=== PATIENT | female | born 1995 | race Caucasian/White ===

== ENCOUNTER 2017-03-24 22:36 | Inpatient (IN) ==
[2017-03-24 23:21] LABS: Basophils % 0.4 %; Eosinophils # 0.1 K/mcL (0.0-0.6); Eosinophils % 1.1 %; Hematocrit 34.5 % (35.3-44.9); Hemoglobin 10.8 g/dL (11.5-15.4); Immature Granulocytes % 0.4 % (0-4); Immature Platelets 5.3 % (1.1-6.1); Lymphocytes # 2.6 K/mcL (0.6-4.6); Lymphocytes % 24.6 %; Mean Corpuscular HGB Conc 31.3 g/dL (31.6-35.5); Mean Corpuscular Hemoglobin 24.6 pg (28.0-33.3); Mean Corpuscular Volume 78.6 fL (83.0-100.0); Mean Platelet Volume 10.9 fL (9.4-12.4); Monocytes # 0.8 K/mcL (0.0-1.3); Monocytes % 7.3 %; Neutrophils # 7.1 K/mcL (1.6-8.9); Platelet Count 358 K/mcL (140-400); Red Blood Count 4.39 M/mcL (3.82-4.97); Red Cell Distribution Width 16.3 % (11.5-14.5); Segmented Neutrophils % 66.2 %
[2017-03-24] MEDS ORDERED: 0.9 % Sodium Chloride 1,000 ML IVC ONE (23:28)
--- NOTE | 2017-03-24 23:31 | Emergency Department Note ---
Overdose - [facility] Narrative Medical decision making narrative: Patient's workup here in the emergency department demonstrates toxic level at 4 hours after the patient took 37 tablets of 500 mg Tylenol. The patient will be given NAC treatment at this time. The patient will be admitted to the ICU for further care and observation. Patient and mother made aware and agree to plan. No further questions or concerns noted. We spoke to the Poison Control Center who agreed to our plan of N-acetylcysteine. The patient will be admitted to the hospitalist, accepted by Dr. Lawson. - Differential Diagnosis Likely: intentional overdose - Lab Data Lab results reviewed: Yes I reviewed the patient's lab results. Result diagrams: 03/24/17 23:15 03/24/17 23:15 Lab Results 03/24/17 03/24/17 03/24/17 Range/Units 23:15 23:15 23:24 WBC 10.7 (4.3-11.1) K/mcL RBC 4.39 (3.82-4.97) M/mcL Hgb 10.8 L (11.5-15.4) g/dL Hct 34.5 L (35.3-44.9) % MCV 78.6 L (83.0-100.0) fL MCH 24.6 L (28.0-33.3) pg MCHC 31.3 L (31.6-35.5) g/dL RDW 16.3 H (11.5-14.5) % Plt Count 358 (140-400) K/mcL MPV 10.9 (9.4-12.4) fL Immature Gran % 0.4 (0-4) % Seg Neutrophils % 66.2 % Lymphocytes % 24.6 % Monocytes % 7.3 % Eosinophils % 1.1 % Basophils % 0.4 % Neutrophils # 7.1 (1.6-8.9) K/mcL Lymphocytes # 2.6 (0.6-4.6) K/mcL Monocytes # 0.8 (0.0-1.3) K/mcL Eosinophils # 0.1 (0.0-0.6) K/mcL Basophils # 0.0 (0.0-0.2) K/mcL Immature Plt Fraction 5.3 (1.1-6.1) % Sodium 139 (136-145) mEq/L Potassium 3.9 (3.5-4.5) mEq/L Chloride 108 (98-109) mEq/L Carbon Dioxide 23 (19-29) mEq/L BUN 9 (7-20) mg/dL Creatinine 0.66 (0.57-1.11) mg/dL Est GFR ( Amer) > 60 (> 60) Est GFR (Non-Af Amer) > 60 (> 60) BUN/Creatinine Ratio 14 (6-26) Glucose 119 H (70-99) mg/dL Calculated Osmolality 288 (280-300) Calcium 9.5 (8.6-10.8) mg/dL Total Bilirubin 0.3 (0.2-1.2) mg/dL Direct Bilirubin 0.2 (0.0-0.5) mg/dL Indirect Bilirubin 0.1 (0.0-1.2) mg/dL AST 21 (5-34) Units/L ALT 33 (0-55) Units/L Alkaline Phosphatase 100 (38-126) Units/L Serum Total Protein 7.6 (6.0-8.3) g/dL Albumin 3.6 (3.5-5.0) g/dL Globulin 4.0 H (2.4-3.5) g/dL Albumin/Globulin Ratio 0.9 L (1.1-2.2) Urine Color Yellow (Yellow) Urine Clarity Clear (Clear) Urine pH 6.5 (5.0-8.0) pH Units Ur Specific [place] 1.008 L (1.010-1.025) Urine Protein Negative (Neg-Trace) mg/dL Urine Glucose (UA) Normal (Normal) mg/dL Urine Ketones Negative (Negative) mg/dL Urine Blood Negative (Negative) Urine Nitrite Negative (Negative) Urine Bilirubin Negative (Negative) Urine Urobilinogen Normal (Normal) mg/dL Ur Leukocyte Esterase Negative (Negative) Urine Test (Negative) Salicylates < 5.0 L (15-30) mg/dL Urine Opiates Screen (Svluzx=611) ng/mL Acetaminophen 205.0 H* (10-30) mcg/mL Ur Barbiturates Screen (Tgedlc=555) ng/mL Ur Phencyclidine Scrn (Cutoff=25) ng/mL Ur Amphetamines Screen (Afwlwl=8772) ng/mL U Benzodiazepines Scrn (Xrglvy=422) ng/mL Urine Cocaine Screen (Cutoff= 300) ng/mL U Marijuana (THC) Screen (Cutoff = 50) ng/mL Ethyl Alcohol < 10 (0-10) mg/dL 03/24/17 03/24/17 03/25/17 Range/Units 23:24 23:24 01:01 WBC (4.3-11.1) K/mcL RBC (3.82-4.97) M/mcL Hgb (11.5-15.4) g/dL Hct (35.3-44.9) % MCV (83.0-100.0) fL MCH (28.0-33.3) pg MCHC (31.6-35.5) g/dL RDW (11.5-14.5) % Plt Count (140-400) K/mcL MPV (9.4-12.4) fL Immature Gran % (0-4) % Seg Neutrophils % % Lymphocytes % % Monocytes % % Eosinophils % % Basophils % % Neutrophils # (1.6-8.9) K/mcL Lymphocytes # (0.6-4.6) K/mcL Monocytes # (0.0-1.3) K/mcL Eosinophils # (0.0-0.6) K/mcL Basophils # (0.0-0.2) K/mcL Immature Plt Fraction (1.1-6.1) % Sodium (136-145) mEq/L Potassium (3.5-4.5) mEq/L Chloride (98-109) mEq/L Carbon Dioxide (19-29) mEq/L BUN (7-20) mg/dL Creatinine (0.57-1.11) mg/dL Est GFR ( Amer) (> 60) Est GFR (Non-Af Amer) (> 60) BUN/Creatinine Ratio (6-26) Glucose (70-99) mg/dL Calculated Osmolality (280-300) Calcium (8.6-10.8) mg/dL Total Bilirubin (0.2-1.2) mg/dL Direct Bilirubin (0.0-0.5) mg/dL Indirect Bilirubin (0.0-1.2) mg/dL AST (5-34) Units/L ALT (0-55) Units/L Alkaline Phosphatase (38-126) Units/L Serum Total Protein (6.0-8.3) g/dL Albumin (3.5-5.0) g/dL Globulin (2.4-3.5) g/dL Albumin/Globulin Ratio (1.1-2.2) Urine Color (Yellow) Urine Clarity (Clear) Urine pH (5.0-8.0) pH Units Ur Specific [place] (1.010-1.025) Urine Protein (Neg-Trace) mg/dL Urine Glucose (UA) (Normal) mg/dL Urine Ketones (Negative) mg/dL Urine Blood (Negative) Urine Nitrite (Negative) Urine Bilirubin (Negative) Urine Urobilinogen (Normal) mg/dL Ur Leukocyte Esterase (Negative) Urine Test Negative (Negative) Salicylates (15-30) mg/dL Urine Opiates Screen Negative (Orqtrt=900) ng/mL Acetaminophen 193.0 H* (10-30) mcg/mL Ur Barbiturates Screen Negative (Fyotvm=411) ng/mL Ur Phencyclidine Scrn Negative (Cutoff=25) ng/mL Ur Amphetamines Screen Negative (Jrzfxn=0228) ng/mL U Benzodiazepines Scrn Negative (Txggpp=225) ng/mL Urine Cocaine Screen Negative (Cutoff= 300) ng/mL U Marijuana (THC) Screen Negative (Cutoff = 50) ng/mL Ethyl Alcohol (0-10) mg/dL - EKG Data EKG attestation: Yes I reviewed and interpreted this EKG. EKG results narrative: Heart rate 10 1 bpm. SC interval 144 ms. QTC 399 ms. Sinus tachycardia. No ST elevation or ST depression noted. No prolongation of QT or QRS at this time. Overdose HPI - General Chief Complaint: ED Overdose Stated Complaint: "SI" Time Seen by Provider: 03/24/17 23:05 Source: patient, family Mode of arrival: ambulatory Limitations: no limitations Nursing Notes Reviewed: Yes Vital Signs Reviewed: Yes - History of Present Illness HPI Narrative: 21-year-old female with history of depression arrives [facility] emergency department after taking 37 tablets of 500 mg Tylenol at 9 PM this evening, roughly 2.5 hours prior to arrival. This equates to be roughly 17.5 g of Tylenol. This number of tablets was confirmed by counting pills in the room. The patient denies taking anything else. The patient states that she did try to kill herself. She denies any other complaints and states she took it all at one time at exactly 9 PM this evening. Pt Subjective Complaint: intentional overdose Onset (ago): hour(s) (2.5) Time of Ingestion: 21:00 Intent: suicide attempt How Overdose Was Discovered: called family/friend Associated symptoms: depression Treatments Prior to Arrival: none - Related Data Previous Rx's Medication Instructions Recorded Albuterol Sulfate [Ventolin Hfa] 2 puff IH Q4-6H PRN #1 hfa.aer.ad 03/13/17 Azithromycin [Zithromax] 250 - 500 mg PO DAILY #6 tablet 03/13/17 Ipratropium/Albuterol Neb [Duoneb] 3 ml IH Q6H PRN #30 vial.neb 03/13/17 Nebulizer [Aeroeclipse] 1 each MC PRN PRN #1 each 03/13/17 Promethazine/Dextromethorphan 5 ml PO Q4-6H PRN #120 ml 03/13/17 [Promethazine-Dm Syrup] Allergies Allergy/AdvReac Type Severity Reaction Status Date / Time No Known Allergies Allergy Verified 05/03/15 19:43 All systems ED: reviewed and negative except as stated. Constitutional: Denies: fever, chills, weakness ENT ED: Denies: congestion Cardiovascular: Denies: chest pain Respiratory: Denies: dyspnea Gastrointestinal: Denies: abdominal pain, nausea, vomiting Genitourinary: Denies: urgency, dysuria Musculoskeletal: Denies: back pain Neurological: Denies: headache Psychiatric: Reports: depression, suicidal thoughts. Denies: anxiety, homicidal thoughts, auditory hallucinations, visual hallucinations Past Medical History - Past Medical History Attestation: Yes The following information was validated with the patient. Source: patient Medical history: Reports: other Surgical history: Reports: non-contributory Psychiatric history: Reports: anxiety, previous psychiatric hospitalization - Social History Smoking Status: Never smoker Smokeless Tobacco Status: No Alcohol use: Reports: none Drug use: Reports: none Physical Exam - General Limitations: no limitations General appearance: alert, in no apparent distress, anxious - Head Head exam: atraumatic, normocephalic, normal inspection - Eye Eye exam: Present: normal appearance, PERRL, EOMI - ENT ENT exam: normal exam, normal oropharynx, mucous membranes moist - Neck Neck exam: Present: normal inspection, full ROM, trachea midline - Chest Chest inspection: Present: normal inspection, symmetric chest wall rise - Respiratory Respiratory exam: Present: normal lung sounds bilaterally - Cardiovascular Cardiovascular exam: Present: normal rhythm, tachycardia, normal heart sounds - Abdominal Exam Abdominal exam: Present: soft, Non-Tender. Absent: tenderness, distention, guarding, rebound, rigidity - Extremities Exam Extremities exam: Present: normal inspection, full ROM. Absent: tenderness, pedal edema - Neurological Exam Neurological exam: Present: alert, oriented X3, CN II-XII intact, normal gait - Expanded Neurological Exam Patient oriented to: Present: person, place, time Coma Scale Eye Opening: Spontaneous Coma Scale Motor Response: Obeys Commands Coma Scale Verbal Response: Oriented Coma Scale Total: 15 Course Vital Signs Temperature 98.3 F 03/24/17 22:39 Pulse Rate 125 03/24/17 22:39 Respiratory Rate 16 03/24/17 22:39 Blood Pressure 134/83 03/24/17 22:39 O2 Sat by Pulse Oximetry 98 03/24/17 22:39 Temperature 98.3 F 03/24/17 22:39 Pulse Rate 91 03/25/17 02:00 Respiratory Rate 20 03/25/17 02:00 Blood Pressure 121/83 03/25/17 02:00 O2 Sat by Pulse Oximetry 97 03/25/17 02:00 Oxygen Delivery Oxygen Delivery Room Air Disposition Clinical Impression: Acetaminophen overdose Qualifiers: Encounter type: initial encounter Injury intent: intentional self-harm Qualified Code(s): T39.1X2A - Poisoning by 4-Aminophenol derivatives, intentional self-harm, initial encounter Suicide attempt by acetaminophen overdose Qualifiers: Encounter type: initial encounter Qualified Code(s): T39.1X2A - Poisoning by 4- Aminophenol derivatives, intentional self-harm, initial encounter Disposition: Admitted As Inpatient Condition: Critical Time of Disposition: 02:14 Attestation Statement - Attestation Attestation: I, Bobby Rosas MD, personally evaluated this patient and discussed their management with the resident physician. I reviewed the resident's note and agree with the documented findings, medical decision making, and plan of care. 21-year-old female presents to the emergency department with complaint of intentional overdose of Tylenol at 9 PM this evening. Patient states she was trying to kill herself. Patient took approximately 17 g. She states she did have one episode of vomiting prior to arrival here but it was outside in the dark and she could not see if there were any pill fragments. She has no specific complaints at present. No abdominal pain or nausea. On examination patient is a well-developed obese young female in no acute distress. She is alert and oriented 3. There is no cyanosis or diaphoresis. Chest is nontender to palpation. Breath sounds are clear and equal bilaterally. Heart regular rate and rhythm. Abdomen soft and nontender with normal bowel sounds. No gross focal neurological deficits. Labs reviewed. Four-hour acetaminophen level 193. Acetadote initiated. The hospitalist, Dr. Davila, was consulted and accepted admission of the patient.
[2017-03-24 23:32] LABS: BUN/Creatinine Ratio 14 (6-26); Blood Urea Nitrogen 9 mg/dL (7-20); Calcium 9.5 mg/dL (8.6-10.8); Carbon Dioxide 23 mEq/L (19-29); Chloride 108 mEq/L (98-109); Glucose 119 mg/dL (70-99); Osmolality,Calculated 288 (280-300); Potassium 3.9 mEq/L (3.5-4.5); Sodium 139 mEq/L (136-145); eGFR For African Americans > 60 (> 60); eGFR For Non-African Americans > 60 (> 60)
[2017-03-24 23:37] LABS: Bilirubin,Urine Negative (Negative); Blood,Urine Negative (Negative); Clarity,Urine Clear (Clear); Color,Urine Yellow (Yellow); Glucose,Urine (UA) Normal (Normal); Ketones,Urine Negative (Negative); Leukocyte Esterase,Urine Negative (Negative); Nitrite,Urine Negative (Negative); PH,Urine 6.5 pH Units (5.0-8.0); Protein,Urine Negative (Neg-Trace); Specific Gravity,Urine 1.008 (1.010-1.025); Urobilinogen,Urine Normal (Normal)
[2017-03-24 23:39] LABS: Amphetamine Screen,Urine Negative ng/mL (Cutoff=1000); Barbiturate Screen,Urine Negative ng/mL (Cutoff=200); Benzodiazepines Screen,Urine Negative ng/mL (Cutoff=200); Cannabinoid Screen,Urine Negative ng/mL (Cutoff = 50); Cocaine Screen,Urine Negative ng/mL (Cutoff= 300); Opiate Screen,Urine Negative ng/mL (Cutoff=300); Phencyclidine Screen,Urine Negative ng/mL (Cutoff=25)
[2017-03-24 23:44] LABS: Alanine Aminotransferase 33 Units/L (0-55); Albumin 3.6 g/dL (3.5-5.0); Albumin/Globulin Ratio 0.9 (1.1-2.2); Alkaline Phosphatase 100 Units/L (38-126); Aspartate Amino Transferase 21 Units/L (5-34); Bilirubin,Direct 0.2 mg/dL (0.0-0.5); Bilirubin,Indirect 0.1 mg/dL (0.0-1.2); Bilirubin,Total 0.3 mg/dL (0.2-1.2); Total Protein 7.6 g/dL (6.0-8.3)
[2017-03-25 00:28] LABS: Ethanol < 10 mg/dL (0-10); Salicylate < 5.0 mg/dL (15-30)
[2017-03-25] MEDS ORDERED: ACETYLCYSTEINE 6000 MG/30 ML IVC STA (01:23)
[2017-03-25] MEDS ORDERED: ACETYLCYSTEINE 6000 MG/30 ML IVC ONE ×2 (01:27→01:28)
[2017-03-25] MEDS ORDERED: Acetylcysteine 15,000 MG in D5% in Water 250 ML IVC STA (01:37)
[2017-03-25] MEDS ORDERED: Acetylcysteine 5,000 MG in D5% in Water 500 ML IVC SCH (03:00)
[2017-03-25] MEDS ORDERED: Ipratropium/Albuterol Neb 3 ML IH PRN (03:18)
[2017-03-25] MEDS ORDERED: Naloxone 0.4 MG/ML INJ IVP PRN (03:18)
[2017-03-25] MEDS ORDERED: Ondansetron 4 MG/2 ML VIAL IVP PRN ×2 (03:18→03:24)
[2017-03-25] MEDS: 0.9 % Sodium Chloride 1,000 ML IVC SCH ×2 (03:41→17:43)
--- NOTE | 2017-03-25 03:45 | Internal Med History&Physical ---
Date of Encounter: 03/25/17 Time of Encounter: 03:20 Assessment and Plan (1) Acetaminophen overdose Current visit: Yes Status: Acute Acute Acetaminophen overdose - secondary to intentional ingestion Acetaminophen level - 205 > 193, serial Acetaminophen levels Continue IV Acetylcysteine, IV fluids, replace Magnesium IV Famotidine, IV Zofran PRN EKG - sinus tachycardia with no acute ST-T changes UA - negative Psychiatry consult - pending Telemetry, pulse ox, labs in a.m., monitor closely Qualifiers: Encounter type: initial encounter Injury intent: intentional self-harm Qualified Code(s): T39.1X2A - Poisoning by 4-Aminophenol derivatives, intentional self-harm, initial encounter (2) Suicide attempt Current visit: Yes Status: Acute Suicide attempt with intentional overdose of Acetaminophen - no previous attempts Patient has not been diagnosed with depression in the past, history of suicidal thoughts in the past Psychiatry consult - pending (3) Asthma Current visit: Yes Status: Acute Asthma, stable - not in exacerbation Attending DuoNeb breathing treatment as needed Qualifiers: Asthma severity: mild Asthma persistence: intermittent Asthma complication type: uncomplicated Qualified Code(s): J45.20 - Mild intermittent asthma, uncomplicated (4) DVT prophylaxis Current visit: Yes Status: Acute Heparin subcutaneous Internal Medicine - H&P: HPI Chief complaint: Intentional overdose Admitted From: Emergency Dept Plans for Post Hospital Care: Home History of present illness: Ms. Barba is a 21 year old female with past medical history of asthma. She presents to the ED after an intentional overdose of Tylenol with suicidal intent. Examined in the ICU. Patient is awake and alert. Not in any distress. Able to provide all history. No family members at bedside. Patient states around 9 PM this evening she ingested about 30-35 tablets of 500 mg Tylenol. Patient denies taking anything else. She states that she did try to kill herself. Patient mentions that she has had suicidal thoughts in the past, but this is the first time that she has acted on this. Patient mentions that she goes to counseling every week, but has never been diagnosed with depression. Patient denies chest pain, palpitations, shortness of breath or headache. She does complain of mild dizziness. She denies auditory or visual hallucinations and denies homicidal thoughts. No other associated symptoms. No other acute complaints. Patient states she has never seen a psychiatrist in the past. Initial workup in the ED is significant for elevated Acetaminophen levels at 205. Patient has been started on Acetylcysteine as per protocol. Patient is currently hemodynamically stable. Psychiatry consult pending. Patient has been explained about her condition and plan of care in detail. She understood and agreed. No unanswered questions. CODE STATUS full code. Past Med Surg Social Fam HX - Past Medical History Medical history: other Psychiatric history: anxiety, previous psychiatric hospitalization - Past Surgical History Surgical History: non-contributory - Social History Smoking Status: Never smoker Smokeless Tobacco Status: No Alcohol use: none Drug use: none Internal Medicine - H&P: Meds Albuterol Sulfate [Ventolin Hfa] 2 puff IH Q4-6H PRN #1 hfa.aer.ad 03/13/17 [Rx] Azithromycin [Zithromax] 250 - 500 mg PO DAILY #6 tablet 03/13/17 [Rx] Ipratropium/Albuterol Neb [Duoneb] 3 ml IH Q6H PRN #30 vial.neb 03/13/17 [Rx] Nebulizer [Aeroeclipse] 1 each MC PRN PRN #1 each 03/13/17 [Rx] Promethazine/Dextromethorphan [Promethazine-Dm Syrup] 5 ml PO Q4-6H PRN #120 ml 03/13/17 [Rx] 3 Allergy/AdvReac Type Severity Reaction Status Date / Time No Known Allergies Allergy Verified 05/03/15 19:43 All Systems PM: A 10-system review of systems was performed and is negative for pertinent findings except as documented above in the HPI. - Constitutional Constitutional: fatigue, no fever(s), no weakness - EENT Eyes: no blurry vision Nose, mouth and throat: no dry mouth - Cardiovascular Cardiovascular ROS IM: no chest pain, no diaphoresis, no dyspnea, no dyspnea on exertion, no edema, no lightheadedness, no orthopnea, no palpitations, no syncope - Respiratory Respiratory: no cough, no dyspnea, no hemoptysis, no dyspnea on exertion, no wheezing, no chest congestion - Gastrointestinal Gastrointestinal: no abdominal pain, no bloating, no cramping, no diarrhea, no hematemesis, no hematochezia, no loose stools, no melena, no nausea, no vomiting - Genitourinary Genitourinary: no dysuria - Musculoskeletal Musculoskeletal ROS IM: no back pain - Neurological Neurological ROS: dizziness, no abnormal gait, no abnormal movements, no abnormal speech, no confusion, no focal weakness, no loss of vision, no numbness , no tingling - Psychiatric Psychiatric: anxiety, depression, suicidal ideation, no homicidal ideation, no irritability - Constitutional Vitals: Temp Pulse Resp BP Pulse Ox 98.3 F 93 18 118/95 97 03/25/17 03:08 03/25/17 03:08 03/25/17 03:08 03/25/17 03:08 03/25/17 03:08 General appearance: Present: cooperative, A&O X 3, morbidly obese, pleasant, no acute distress, answers questions appropriately - Head Head exam: Present: atraumatic - Eye Eye exam: Present: EOMI - ENT ENT exam: Present: mucous membranes moist - Neck Neck exam general surgery: Present: full ROM - Respiratory Respiratory exam: Present: CTAB. Absent: accessory muscle use, chest wall tenderness, rales, respiratory distress, rhonchi, wheezes, tachypnea - Cardiovascular Cardiovascular exam: Present: RRR, +S1, +S2 - GI/Abdominal GI/Abdominal exam: Present: soft. Absent: distended, firm, guarding, tenderness - Extremities Exam Extremities exam: Present: pedal edema (Mild bilateral), radial pulses palpable and symmetrical. Absent: calf tenderness, cyanotic - Neurological Exam Neurological exam: Present: alert, oriented X3, no focal deficits. Absent: facial droop, speech deficit Internal Med - H&P Results - Labs CBC & Chem 7: 03/25/17 03:58 03/25/17 03:58
[2017-03-25 04:45] LABS: Basophils % 0.4 %; Eosinophils % 0.4 %; Hematocrit 30.8 % (35.3-44.9); Hemoglobin 9.5 g/dL (11.5-15.4); Immature Granulocytes % 0.2 % (0-4); Lymphocytes # 2.6 K/mcL (0.6-4.6); Lymphocytes % 31.6 %; Mean Corpuscular HGB Conc 30.8 g/dL (31.6-35.5); Mean Corpuscular Hemoglobin 24.2 pg (28.0-33.3); Mean Corpuscular Volume 78.6 fL (83.0-100.0); Mean Platelet Volume 11.6 fL (9.4-12.4); Monocytes # 0.5 K/mcL (0.0-1.3); Neutrophils # 5.1 K/mcL (1.6-8.9); Platelet Count 323 K/mcL (140-400); Red Blood Count 3.92 M/mcL (3.82-4.97); Red Cell Distribution Width 16.4 % (11.5-14.5); Segmented Neutrophils % 61.4 %
[2017-03-25 04:58] LABS: Alanine Aminotransferase 30 Units/L (0-55); Albumin 2.9 g/dL (3.5-5.0); Albumin/Globulin Ratio 0.8 (1.1-2.2); Alkaline Phosphatase 76 Units/L (38-126); Aspartate Amino Transferase 15 Units/L (5-34); BUN/Creatinine Ratio 11 (6-26); Bilirubin,Total 0.3 mg/dL (0.2-1.2); Blood Urea Nitrogen 7 mg/dL (7-20); Calcium 8.3 mg/dL (8.6-10.8); Carbon Dioxide 22 mEq/L (19-29); Chloride 110 mEq/L (98-109); Globulin 3.7 g/dL (2.4-3.5); Glucose 143 mg/dL (70-99); Osmolality,Calculated 292 (280-300); Potassium 3.5 mEq/L (3.5-4.5); Sodium 141 mEq/L (136-145); Total Protein 6.6 g/dL (6.0-8.3); eGFR For African Americans > 60 (> 60); eGFR For Non-African Americans > 60 (> 60)
[2017-03-25] MEDS: Famotidine 20 MG/2 ML VIAL IVP SCH ×2 (05:11→17:34)
[2017-03-25] MEDS ORDERED: Acetylcysteine 10,000 MG in D5% in Water 1,000 ML IVC SCH (07:00)
[2017-03-25] MEDS: *HR* Heparin 5,000 UNIT/ML VIAL SQ SCH ×2 (07:48→17:33)
[2017-03-25 13:57] LABS: Alanine Aminotransferase 29 Units/L (0-55); Albumin 2.9 g/dL (3.5-5.0); Albumin/Globulin Ratio 0.7 (1.1-2.2); Alkaline Phosphatase 77 Units/L (38-126); Aspartate Amino Transferase 23 Units/L (5-34); BUN/Creatinine Ratio 7 (6-26); Bilirubin,Total 0.6 mg/dL (0.2-1.2); Calcium 8.5 mg/dL (8.6-10.8); Carbon Dioxide 22 mEq/L (19-29); Chloride 110 mEq/L (98-109); Globulin 4.1 g/dL (2.4-3.5); Glucose 101 mg/dL (70-99); Osmolality,Calculated 285 (280-300); Potassium 3.9 mEq/L (3.5-4.5); Sodium 139 mEq/L (136-145); eGFR For African Americans > 60 (> 60); eGFR For Non-African Americans > 60 (> 60)
[2017-03-25 13:59] LABS: Blood Urea Nitrogen 4 mg/dL (7-20)
--- NOTE | 2017-03-25 15:12 | Consult Note ---
Date of Encounter: 03/25/17 Time of Encounter: 15:02 History of Present Illness Patient: new to practice Requesting Physician: Imelda Mosher MD History of present illness: Ms. Barba is a 21 year old female from [place]. Chief complaint I took too much medication was bad decision. I got sick I called my mom. Patient took approximately 30 Tylenol. History of present illness: Patient had a bad son in fact her week had been bad. She attempted to go to an inpatient psychiatric unit on Saturday afternoon. She was there for about 3 days and she requests to go to a residential facility. However she was told that her insurance would not cover it and she could not get that. The patient returned back on Saturday. She had been isolated she had been poorly socialized. The patient took over 30 Tylenol on Saturday night without a previous plan. There are no other suicide attempts. The patient has been in counseling for over 5 months. She has been trying to cover up some things and consequently lied about a few things. She said that she made some bad decisions. Patient is on no psychiatric medicines. She was not given a psychiatric diagnosis. She is the counselor and [place] but no psychiatrist no primary care doctor. The patient quit her job to go to the facility. She is now looking for a new job. Past psychiatric history is significant for some self-harm but no other significant problems. Past medical history: Surgery on the right foot with repair of the fifth metatarsal. Illness: Asthma with an when necessary inhaler. NKDA, meds none, . she is on no control Family history is not well known of father's family there is no history of suicide the patient has a maternal grandfather alcohol problem aunts and uncles had alcohol problems. There is no history of drug abuse. Social history: The patient was raised in [place] she completed high school she went to some college. 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 Patient lives alone. She has no relationship problems or other problems. She identifies herself as a denominational member. Review of systems. Patient has occasional dyspnea. She has no problems with bowel or bladder. She has no primary care physician. On mental status exam she was alert and oriented 3 she is casually groomed and dressed she was lying in bed. Speech was within normal limits sad her mood was dysphoric thought content was logical and goal-directed there is no evidence suicidality or psychosis insight and judgment intact Diagnosis: Adjustment disorder with depressed mood Acetaminophen overdose Asthma. Recommendations and plan. At this point the patient would benefit from going back to her counselor will try to get a release of information. She does not wish to take psychiatric medicines at this time. She could be evaluated for medications on an outpatient basis. The patient could be considered for partial hospitalization in the local facility. She may return to work without restriction. However it is important for her to have the number for suicide hotline or the number to the [facility] c crisis line. Also the [place] emergency room can be contacted should patient have thoughts of harming herself again. Her mother is checked over her house and has removed Tylenol there is no alcohol guns or other apparent implements of suicide. I did discuss the treatment plan with the patient's father. The patient's mother was not available at this time. The patient may be taken off SL. She can be scheduled for follow-up should she need psychiatric treatment she can be seen by [facility] services or could seek admission through the ER. I do not feel she requires inpatient hospitalization or involuntary hospitalization this time CC: Imelda Mosher MD Past Med Surg Social Fam HX - Past Medical History Medical history: other - Past Surgical History Surgical History: non-contributory - Social History Smoking Status: Never smoker Smokeless Tobacco Status: No Alcohol use: none Drug use: none Medications & Allergies Albuterol Sulfate [Ventolin Hfa] 2 puff IH Q4-6H PRN #1 hfa.aer.ad 03/13/17 [Rx] Ipratropium/Albuterol Neb [Duoneb] 3 ml IH Q6H PRN #30 vial.neb 03/13/17 [Rx] 3 Allergy/AdvReac Type Severity Reaction Status Date / Time No Known Allergies Allergy Verified 05/03/15 19:43 Review of Systems Respiratory: Reports: dyspnea Results - Vital Signs Vital signs: Temp Pulse Resp BP Pulse Ox 97.9 F 93 13 121/90 97 03/25/17 12:00 03/25/17 14:00 03/25/17 14:00 03/25/17 14:00 03/25/17 10:59 - Drug Levels and Toxicology Drug Levels and Toxicology: Drug Levels and Toxicity 03/25/17 03/25/17 07:37 13:31 Acetaminophen 39.0 H 5.0 L - Labs Labs: Laboratory Last Values WBC 8.4 K/mcL (4.3-11.1) 03/25/17 03:58 RBC 3.92 M/mcL (3.82-4.97) 03/25/17 03:58 Hgb 9.5 g/dL (11.5-15.4) L 03/25/17 03:58 Hct 30.8 % (35.3-44.9) L 03/25/17 03:58 MCV 78.6 fL (83.0-100.0) L 03/25/17 03:58 MCH 24.2 pg (28.0-33.3) L 03/25/17 03:58 MCHC 30.8 g/dL (31.6-35.5) L 03/25/17 03:58 RDW 16.4 % (11.5-14.5) H 03/25/17 03:58 Plt Count 323 K/mcL (140-400) 03/25/17 03:58 MPV 11.6 fL (9.4-12.4) 03/25/17 03:58 Immature Gran % 0.2 % (0-4) 03/25/17 03:58 Seg Neutrophils % 61.4 % 03/25/17 03:58 Lymphocytes % 31.6 % 03/25/17 03:58 Monocytes % 6.0 % 03/25/17 03:58 Eosinophils % 0.4 % 03/25/17 03:58 Basophils % 0.4 % 03/25/17 03:58 Neutrophils # 5.1 K/mcL (1.6-8.9) 03/25/17 03:58 Lymphocytes # 2.6 K/mcL (0.6-4.6) 03/25/17 03:58 Monocytes # 0.5 K/mcL (0.0-1.3) 03/25/17 03:58 Eosinophils # 0.0 K/mcL (0.0-0.6) 03/25/17 03:58 Basophils # 0.0 K/mcL (0.0-0.2) 03/25/17 03:58 Immature Plt Fraction 5.3 % (1.1-6.1) 03/24/17 23:15 Sodium 139 mEq/L (136-145) 03/25/17 13:31 Potassium 3.9 mEq/L (3.5-4.5) 03/25/17 13:31 Chloride 110 mEq/L (98-109) H 03/25/17 13:31 Carbon Dioxide 22 mEq/L (19-29) 03/25/17 13:31 BUN 4 mg/dL (7-20) L 03/25/17 13:31 Creatinine 0.61 mg/dL (0.57-1.11) 03/25/17 13:31 Est GFR ( Amer) > 60 (> 60) 03/25/17 13:31 Est GFR (Non-Af Amer) > 60 (> 60) 03/25/17 13:31 BUN/Creatinine Ratio 7 (6-26) 03/25/17 13:31 Glucose 101 mg/dL (70-99) H 03/25/17 13:31 Calculated Osmolality 285 (280-300) 03/25/17 13:31 Calcium 8.5 mg/dL (8.6-10.8) L 03/25/17 13:31 Magnesium 1.5 mg/dL (1.6-2.6) L 03/25/17 03:58 Total Bilirubin 0.6 mg/dL (0.2-1.2) 03/25/17 13:31 Direct Bilirubin 0.2 mg/dL (0.0-0.5) 03/24/17 23:15 Indirect Bilirubin 0.1 mg/dL (0.0-1.2) 03/24/17 23:15 AST 23 Units/L (5-34) 03/25/17 13:31 ALT 29 Units/L (0-55) 03/25/17 13:31 Alkaline Phosphatase 77 Units/L (38-126) 03/25/17 13:31 Serum Total Protein 7.0 g/dL (6.0-8.3) 03/25/17 13:31 Albumin 2.9 g/dL (3.5-5.0) L 03/25/17 13:31 Globulin 4.1 g/dL (2.4-3.5) H 03/25/17 13:31 Albumin/Globulin Ratio 0.7 (1.1-2.2) L 03/25/17 13:31 Urine Color Yellow (Yellow) 03/24/17 23:24 Urine Clarity Clear (Clear) 03/24/17 23:24 Urine pH 6.5 pH Units (5.0-8.0) 03/24/17 23:24 Ur Specific [place] 1.008 (1.010-1.025) L 03/24/17 23:24 Urine Protein Negative mg/dL (Neg-Trace) 03/24/17 23:24 Urine Glucose (UA) Normal mg/dL (Normal) 03/24/17 23:24 Urine Ketones Negative mg/dL (Negative) 03/24/17 23:24 Urine Blood Negative (Negative) 03/24/17 23:24 Urine Nitrite Negative (Negative) 03/24/17 23:24 Urine Bilirubin Negative (Negative) 03/24/17 23:24 Urine Urobilinogen Normal mg/dL (Normal) 03/24/17 23:24 Ur Leukocyte Esterase Negative (Negative) 03/24/17 23:24 Urine Test Negative (Negative) 03/24/17 23:24 Salicylates < 5.0 mg/dL (15-30) L 03/24/17 23:15 Urine Opiates Screen Negative ng/mL (Beklqb=707) 03/24/17 23:24 Acetaminophen 5.0 mcg/mL (10-30) L 03/25/17 13:31 Ur Barbiturates Screen Negative ng/mL (Gyfkjz=612) 03/24/17 23:24 Ur Phencyclidine Scrn Negative ng/mL (Cutoff=25) 03/24/17 23:24 Ur Amphetamines Screen Negative ng/mL (Ijpewe=5776) 03/24/17 23:24 U Benzodiazepines Scrn Negative ng/mL (Ucqynp=803) 03/24/17 23:24 Urine Cocaine Screen Negative ng/mL (Cutoff= 300) 03/24/17 23:24 U Marijuana (THC) Screen Negative ng/mL (Cutoff = 50) 03/24/17 23:24 Ethyl Alcohol < 10 mg/dL (0-10) 03/24/17 23:15 Consult Discharge Plan - Plan Referrals: NONE,PCP [Primary Care Provider] -
--- NOTE | 2017-03-25 15:50 | Electrocardiograph Report ---
[address] [place], [place] [address] Test Date: 2017-03-24 Pat Name: Fadumo Barba Department: 104 Room: [facility] Gender: F Equipment Validation Specialist: KRIS : 1995 Requested By: Christopher Boggs Order Number: [id number] Reading MD: Omid Dennis Measurements Intervals [place] Rate: 101 P: 28 [place]: 144 QRS: -3 QRSD: 82 T: 3 QT: 341 QTc: 399 Interpretive Statements SINUS TACHYCARDIA NONSPECIFIC T-WAVE ABNORMALITY ABNORMAL RHYTHM ECG BASELINE ARTIFACT Electronically Signed On 03-25-2017 15:48:41 EST by Omid Dennis
--- NOTE | 2017-03-25 17:53 | Internal Med Progress Note ---
Date of Encounter: 03/25/17 Time of Encounter: 09:00 - Assessment and plan (1) Acetaminophen overdose Current Visit: Yes Status: Acute Assessment and plan: Patient was started iv acetylcycteine protocol. Liver function stable. Acetaminophen level gets down. - Cont acetylcycteine protocol. F/U liver/renal function in am Qualifiers: Encounter type: initial encounter Injury intent: intentional self-harm Qualified Code(s): T39.1X2A - Poisoning by 4-Aminophenol derivatives, intentional self-harm, initial encounter (2) Suicide attempt by acetaminophen overdose Current Visit: Yes Status: Acute Assessment and plan: Psychiatry consult appreciated. Recommendation will be followed Qualifiers: Encounter type: initial encounter Qualified Code(s): T39.1X2A - Poisoning by 4-Aminophenol derivatives, intentional self-harm, initial encounter (3) DVT prophylaxis Current Visit: Yes Status: Acute Assessment and plan: Heparin subcutaneously. (4) Asthma Current Visit: Yes Status: Acute Assessment and plan: No wheezing. DuoNeb when necessary Qualifiers: Asthma severity: mild Asthma persistence: intermittent Asthma complication type: uncomplicated Qualified Code(s): J45.20 - Mild intermittent asthma, uncomplicated - Time Spent With Patient 25 - 35 minutes - Subjective Interval history: Patient was seen and examined. Laying on bed comfortably, no abdominal pain, nausea or vomiting. Denies suicidal or homicidal idea. Vitals are stable. Psychiatry consult appreciated. We will continue acetylcysteine to finish up the 21 hour protocol. Normal liver function, acetaminophen level gets down to 5 already. - Constitutional Vitals: Temp Pulse Resp BP Pulse Ox 98.2 F 106 21 125/82 97 03/25/17 15:00 03/25/17 17:00 03/25/17 17:00 03/25/17 17:00 03/25/17 10:59 General appearance: Present: cooperative, A&O X 3, morbidly obese, pleasant, no acute distress, answers questions appropriately - Head Head exam: Present: atraumatic, normocephalic - Eye Eye exam: Present: PERRL, conjuntiva pink, sclera anicteric Pupils: Present: PERRL - Neck Neck exam general surgery: Present: supple, trachea midline. Absent: lymphadenopathy - Respiratory Respiratory exam: Present: CTAB. Absent: accessory muscle use, rales, rhonchi, wheezes - Cardiovascular Cardiovascular exam: Present: RRR, +S1, +S2. Absent: diastolic murmur, gallop, rubs, systolic murmur - GI/Abdominal GI/Abdominal exam: Present: normal bowel sounds, soft, no peritoneal signs. Absent: distended, tenderness - Extremities Exam Extremities exam: Present: warm, radial pulses palpable and symmetrical. Absent : calf tenderness, cyanotic, pedal edema - Neurological Exam Neurological exam: Present: CN II-XII intact, oriented X3, no focal deficits. Absent: pronater drift, facial droop, speech deficit - Skin Skin exam: Present: dry, intact Internal Medicine: Result - Labs CBC & Chem 7: 03/25/17 03:58 03/25/17 13:31 Labs: Short CBC 03/25/17 Range/Units 03:58 WBC 8.4 (4.3-11.1) K/mcL Hgb 9.5 L (11.5-15.4) g/dL Hct 30.8 L (35.3-44.9) % Plt Count 323 (140-400) K/mcL Neutrophils # 5.1 (1.6-8.9) K/mcL BMP 03/25/17 03/25/17 03:58 13:31 Sodium 141 139 Potassium 3.5 3.9 Chloride 110 H 110 H Carbon Dioxide 22 22 BUN 7 4 L Creatinine 0.61 0.61 Glucose 143 H 101 H Calcium 8.3 L 8.5 L Liver Function 03/25/17 03/25/17 Range/Units 03:58 13:31 Total Bilirubin 0.3 0.6 (0.2-1.2) mg/dL AST 15 23 (5-34) Units/L ALT 30 29 (0-55) Units/L Alkaline Phosphatase 76 77 (38-126) Units/L Albumin 2.9 L 2.9 L (3.5-5.0) g/dL - VTE Documentation of Mechanical Device: Intermittent pneumatic compression device Consult Discharge Plan - Plan Referrals: NONE,PCP [Primary Care Provider] -
[2017-03-25 23:25] LABS: Acetaminophen < 1.0 mcg/mL (10-30); Aspartate Amino Transferase 15 Units/L (5-34)
[2017-03-26] MEDS: *HR* Heparin 5,000 UNIT/ML VIAL SQ SCH ×2 (03:15→08:58)
[2017-03-26 05:15] LABS: INR 1.3; Prothrombin Time 13.8 Seconds (9.4-12.1)
[2017-03-26 05:30] LABS: Alanine Aminotransferase 23 Units/L (0-55); Albumin/Globulin Ratio 0.8 (1.1-2.2); Alkaline Phosphatase 80 Units/L (38-126); Aspartate Amino Transferase 13 Units/L (5-34); BUN/Creatinine Ratio 12 (6-26); Bilirubin,Total 0.3 mg/dL (0.2-1.2); Blood Urea Nitrogen 8 mg/dL (7-20); Carbon Dioxide 24 mEq/L (19-29); Chloride 110 mEq/L (98-109); Globulin 3.7 g/dL (2.4-3.5); Glucose 89 mg/dL (70-99); Osmolality,Calculated 290 (280-300); Sodium 141 mEq/L (136-145); Total Protein 6.7 g/dL (6.0-8.3); eGFR For African Americans > 60 (> 60); eGFR For Non-African Americans > 60 (> 60)
[2017-03-26 05:33] LABS: Acetaminophen < 1.0 mcg/mL (10-30)
[2017-03-26] MEDS: Famotidine 20 MG/2 ML VIAL IVP SCH (05:34)
[2017-03-26 05:36] LABS: BUN/Creatinine Ratio 10 (6-26); Blood Urea Nitrogen 7 mg/dL (7-20); Calcium 9.5 mg/dL (8.6-10.8); Carbon Dioxide 24 mEq/L (19-29); Chloride 111 mEq/L (98-109); Glucose 85 mg/dL (70-99); Magnesium 1.9 mg/dL (1.6-2.6); Osmolality,Calculated 289 (280-300); Sodium 141 mEq/L (136-145); eGFR For African Americans > 60 (> 60); eGFR For Non-African Americans > 60 (> 60)
[2017-03-26 13:02] VITALS: BP 135/75
--- NOTE | 2017-03-26 15:05 | Discharge Summary ---
Date of Encounter: 03/26/17 Time of Encounter: 13:30 - Discharge Diagnosis (1) Acetaminophen overdose Priority: Primary Status: Acute Qualifiers: Encounter type: initial encounter Injury intent: intentional self-harm Qualified Code(s): T39.1X2A - Poisoning by 4-Aminophenol derivatives, intentional self-harm, initial encounter (2) Suicide attempt by acetaminophen overdose Priority: Primary Status: Acute Qualifiers: Encounter type: initial encounter Qualified Code(s): T39.1X2A - Poisoning by 4-Aminophenol derivatives, intentional self-harm, initial encounter (3) DVT prophylaxis Priority: Secondary Status: Acute (4) Asthma Priority: Secondary Status: Chronic Qualifiers: Asthma severity: mild Asthma persistence: intermittent Asthma complication type: uncomplicated Qualified Code(s): J45.20 - Mild intermittent asthma, uncomplicated - Discharge Medications Home Medications: Albuterol Sulfate [Ventolin Hfa] 2 puff IH Q4-6H PRN #1 hfa.aer.ad 03/13/17 [Rx] Ipratropium/Albuterol Neb [Duoneb] 3 ml IH Q6H PRN #30 vial.neb 03/13/17 [Rx] Allergies/Adverse Reactions: 3 Allergy/AdvReac Type Severity Reaction Status Date / Time No Known Allergies Allergy Verified 05/03/15 19:43 Date of admission: 03/25/17 02:39 Primary care physician: PCP NONE Consults: 03/25/17 05:05 Consult to Psychiatry [CONS] Routine Consulting Provider: Psychiatry Maddison Reason for Consult: Intentional overdose Call Completed: Yes 03/26/17 12:49 Consult to Literacy Coordinator [CONS] Routine Reason for SW Consult: Overdose. Discharging clinician: Abbie Thrasher Anticipated date of discharge: 03/26/17 - Patient Status Disposition: Home, Self-Care Condition: Good Functional capacity at discharge: independent ambulation Overall status at discharge: patient is back to baseline - Discharge Instructions Follow Up With: NONE,PCP [Primary Care Provider] - Additional Instructions: Please follow up with your counselor/therapist tomorrow as per your scheduled appointment Please follow up with your primary care physician within five days after your discharge from the hospital. Please seek medical help immediately if you have any thoughts of hurting yourself - Diet and Activity Activity: resume usual activities as tolerated Diet: advance to your usual diet Hospital course: Ms. Barba is a 21 year old female with PMH of asthma who was admitted to the ICU for tyelenol overdose as a suicide attempt. Patient was started on acetylcysteine, IV fluids and admitted to the ICU. Patient responded well to therapy and LFT remained stable with acetaminophen levels gradually falling down. Pt has been off acetylcystein since yesterday. She was evaluated by psychiatry and outpatient management was recommended. Pt denies any suicidal ideation at this time and reports of having a meeting with her counselor tomorrow morning. As per psych patient does not need inpatient psych hospitalized and patient is refusing to be started on any psych medications. Patient will be followed by her therapist/counselor after discharge. She has been cleared for discharge by psychiatry. Patient is medically stable and will be discharged to home today. PCP is requested prior to discharge - Time Spent with Patient Total time spent providing and/or coordinating discharge services: Less than 30 minutes - Constitutional Vitals: Temp Pulse Resp BP Pulse Ox 98.5 F 88 12 135/75 98 03/26/17 12:15 03/26/17 12:00 03/26/17 12:00 03/26/17 12:00 03/26/17 12:00 General appearance: Present: cooperative, A&O X 3, morbidly obese, pleasant, no acute distress, answers questions appropriately - Head Head exam: Present: atraumatic, normocephalic - Eye Eye exam: Present: conjuntiva pink, sclera anicteric - Respiratory Respiratory exam: Present: CTAB. Absent: accessory muscle use, rales, rhonchi, wheezes - Cardiovascular Cardiovascular exam: Present: RRR, +S1, +S2. Absent: diastolic murmur, gallop, rubs, systolic murmur - GI/Abdominal GI/Abdominal exam: Present: normal bowel sounds, soft, no peritoneal signs. Absent: distended, tenderness - Extremities Exam Extremities exam: Present: warm, radial pulses palpable and symmetrical. Absent : calf tenderness, cyanotic, pedal edema - Neurological Exam Neurological exam: Present: alert, oriented X3 - Psychiatric Psychiatric exam: Present: normal affect, normal mood. Absent: homicidal ideation, suicidal ideation - VTE Documentation of Mechanical Device: Intermittent pneumatic compression device
== END 2017-03-26 15:37 | disposition home or self-care (01) | DRG 918 ==
LOC: EMEROO 22:36 → SUATTDRO 03-25 02:39 → ICNU 03-25 02:39
PROVIDERS: ADMIT Internal Medicine; ATTEND Internal Medicine